=== PATIENT | female | born 1995 | race Two or more races ===

== ENCOUNTER → 2020-10-26 | Outpatient (CLI) | payer OTHER | END | disposition home or self-care (01) | LOC: LAB 11:42 | PROVIDERS: ATTEND Emergency Medicine Pediatric Emergency Medicine | DX: Z03.818 Encounter for observation for suspected exposure to other biological agents ruled out (principal) ==

== ENCOUNTER 2021-01-10 14:44 | Emergency (ER) | payer OTHER ==
[~2021-01-10] VITALS: Ht 160 cm; Wt 59.0 kg
[2021-01-10] MEDS ORDERED: KETO10TA2 PO (15:17)
[2021-01-10] MEDS ORDERED: NORFLEX100MG PO (15:17)
== END 2021-01-10 15:22 | disposition home or self-care (01) ==
LOC: ER 14:44
DX: S00.531A Contusion of lip, initial encounter (principal); V49.49XA Driver injured in collision with other motor vehicles in traffic accident, initial encounter; Y93.89 Activity, other specified; Y92.488 Other paved roadways as the place of occurrence of the external cause; Y99.8 Other external cause status

== ENCOUNTER 2021-12-06 08:00 | Outpatient (CLI) | payer OTHER ==
[~2021-12-06 08:00] MED LIST: KETO10TA2 PO; NORFLEX100MG PO
== END 2021-12-06 08:05 | disposition home or self-care (01) ==
LOC: PPH VACUNA 08:00
PROVIDERS: ATTEND Emergency Medicine Pediatric Emergency Medicine
DX: Z23 Encounter for immunization (principal)